=== PATIENT | male | born 1980 | race Caucasian/White ===

== ENCOUNTER 2022-09-06 12:16 | Emergency (ER) | payer OTHER ==
[~2022-09-06] VITALS: Ht 177.8 cm; Wt 97.0 kg
[2022-09-06] VITALS (8 sets, daily range): BP systolic 116–142; BP diastolic 83–99
[2022-09-06] MEDS ORDERED: CYCLOBENZAPRINE10 MG PO (13:49)
[2022-09-06] MEDS ORDERED: NAPROXEN500 MG PO (13:49)
[2022-09-06 13:53] LABS: URINE BILIRUBIN - DIPSTICK NEGATIVE (NEGATIVE); URINE BLOOD DIPSTICK NEGATIVE (NEGATIVE); URINE CLARITY CLEAR; URINE COLOR YELLOW; URINE GLUCOSE - DIPSTICK NEGATIVE (NEGATIVE); URINE KETONE NEGATIVE (NEGATIVE); URINE LEUK ESTERASE NEGATIVE (Negative); URINE NITRITE - DIPSTICK NEGATIVE (Negative); URINE PROTEIN - DIPSTICK NEGATIVE (NEG-TRACE); URINE UROBILINOGEN - DIPSTICK 0.2 E.U./dL (0.2)
== END 2022-09-06 14:31 | disposition home or self-care (01) | DRG 552 ==
LOC: ED 12:16
PROVIDERS: Nurse Practitioner
PROC: 2W3DX1Z Immobilization of Left Lower Arm using Splint (ICD-10-PCS; principal; 2022-09-06)
DX: S16.1XXA Strain of muscle, fascia and tendon at neck level, initial encounter (principal); M79.645 Pain in left finger(s); V44.5XXA Car driver injured in collision with heavy transport vehicle or bus in traffic accident, initial encounter